=== PATIENT | female | born 1955 | race African-American/Black ===

== ENCOUNTER 2021-03-30 14:57 | Emergency (ER) | payer MEDICARE, OTHER ==
[~2021-03-30] VITALS: Ht 172.7 cm; Wt 450.0 kg
[2021-03-30] MEDS ORDERED: BACITRACIN 15GM TUBE TOP ONE (16:00)
[2021-03-30] MEDS ORDERED: BO1 TP (16:30)
[2021-03-30] MEDS ORDERED: NAPR-679 MT (16:33)
[2021-03-30 17:10] VITALS: BP 131/74
== END 2021-03-30 17:12 | disposition home or self-care (01) ==
LOC: ER 14:57
DX: L03.316 Cellulitis of umbilicus (principal); M79.3 Panniculitis, unspecified; E66.01 Morbid (severe) obesity due to excess calories; Z68.45 Body mass index [BMI] 70 or greater, adult; R03.0 Elevated blood-pressure reading, without diagnosis of hypertension
CPT/HCPCS: 99282

== ENCOUNTER 2021-05-25 13:55 | Emergency (ER) | payer BC, MEDICAID ==
[~2021-05-25] VITALS: Ht 167.6 cm; Wt 150.0 kg
[~2021-05-25 13:55] MED LIST: BO1 TP; NAPR-679 MT
[2021-05-25 14:10] VITALS: BP 161/82
[2021-05-25 19:15] LABS: BASOPHILS % 0.8 % (0.0-2.0); HEMATOCRIT. 34.2 % (36.0-48.0); HEMOGLOBIN. 11.4 g/dL (12.0-16.0); LYMPHOCYTES % 50.5 % (20.0-50.0); MEAN CORPUSCULAR HEMOGLOBIN 27.2 pg (28.0-32.0); MEAN CORPUSCULAR VOLUME 81.3 fL (81.0-99.0); MEAN PLATELET VOLUME 7.9 fl (7.4-10.4); MONOCYTES % 8.3 % (2.0-8.0); NEUTROPHILS % 35.4 % (40.0-76.0); PLATELET 289 x1000/uL (130-400); RED BLOOD CELL COUNT 4.21 mill/uL (4.2-5.4); RED CELL DISTRIBUTION WIDTH 14.9 % (11.6-14.6)
[2021-05-25 19:20] LABS: CHLORIDE 106 mEq/L (98-107)
== END 2021-05-25 21:31 | disposition home or self-care (01) ==
LOC: ER 13:55
DX: R60.0 Localized edema (principal); M79.672 Pain in left foot; M79.671 Pain in right foot; R26.2 Difficulty in walking, not elsewhere classified; M25.562 Pain in left knee; M25.561 Pain in right knee; R03.0 Elevated blood-pressure reading, without diagnosis of hypertension; I45.10 Unspecified right bundle-branch block; K43.9 Ventral hernia without obstruction or gangrene; E11.9 Type 2 diabetes mellitus without complications; J45.909 Unspecified asthma, uncomplicated; E66.9 Obesity, unspecified; Z68.43 Body mass index [BMI] 50.0-59.9, adult
CPT/HCPCS: 36415; 71045; 80053; 83880; 84484; 85025; 93005; 93970; 99285

== ENCOUNTER 2021-06-26 23:02 | Inpatient (IN) | payer BC, MEDICAID ==
[~2021-06-26] VITALS: Ht 172.7 cm; Wt 173.3 kg
[2021-06-26] MEDS ORDERED: KETOROLAC 30MG/ML VIAL IV ONE (23:30)
[2021-06-26] MEDS ORDERED: FUROSEMIDE 40MG/4ML VIAL IV ONE (23:30)
[2021-06-27 00:02] LABS: BASOPHILS % 0.9 % (0.0-2.0); EOSINOPHILS % 5.9 % (0.0-5.0); HEMATOCRIT. 29.8 % (36.0-48.0); HEMOGLOBIN. 10.3 g/dL (12.0-16.0); MEAN CORPUSCULAR HEMOGLOBIN 27.9 pg (28.0-32.0); MEAN CORPUSCULAR VOLUME 80.9 fL (81.0-99.0); MEAN PLATELET VOLUME 7.5 fl (7.4-10.4); MONOCYTES % 10.3 % (2.0-8.0); NEUTROPHILS % 33.9 % (40.0-76.0); PLATELET 275 x1000/uL (130-400); RED BLOOD CELL COUNT 3.68 mill/uL (4.2-5.4); RED CELL DISTRIBUTION WIDTH 15.4 % (11.6-14.6)
[2021-06-27 00:07] LABS: CHLORIDE 106 mEq/L (98-107)
[2021-06-27 03:03] VITALS: BP 140/75
[2021-06-27] MEDS ORDERED: *PATIENT'S OWN MEDICATION STORAGE XX SCH (05:45)
[2021-06-27] MEDS ORDERED: IPRATROPIUM/ALBUTEROL 0.5-3(2.5)MG/3ML NEB HHN PRN (06:15)
[2021-06-27] MEDS: HYDROCODONE/ACETAMINOPHEN 5/325MG TABLET PO PRN ×2 (06:37→12:47)
[2021-06-27] MEDS: FUROSEMIDE 40MG/4ML VIAL IVP SCH ×2 (06:43→18:39)
[2021-06-27] MEDS ORDERED: PNEUMOCOCCAL 23-VAL P-SAC VAC 0.5 ML IM ONE (08:00)
[2021-06-27 08:05] VITALS: BP 131/65
[2021-06-27] MEDS: ENOXAPARIN 40MG/0.4ML SYR SUBCUT SCH ×2 (08:56→21:18)
[2021-06-27] MEDS ORDERED: ENOXAPARIN 40MG/0.4ML SYR SUBCUT SCH (09:00)
[2021-06-27] MEDS ORDERED: LISINOPRIL 20MG TABLET PO SCH (09:00)
[2021-06-27] MEDS ORDERED: POTASSIUM CHLORIDE 20MEQ TABLET SR PO SCH (11:15)
[2021-06-27 11:57] VITALS: BP 132/76
[2021-06-27] MEDS: CYCLOBENZAPRINE 10MG TABLET PO SCH ×2 (13:58→21:18)
[2021-06-27] MEDS ORDERED: NALOXONE HCL 0.4MG/ML VIAL IV PRN (14:30)
[2021-06-27] MEDS: POTASSIUM CHLORIDE 20MEQ TABLET SR PO SCH (14:47)
[2021-06-27] MEDS: MAGNESIUM GLUCONATE 500MG TABLET PO SCH (14:47)
[2021-06-27 16:29] VITALS: BP 118/63
[2021-06-27 20:00] VITALS: BP 116/54
[2021-06-27] MEDS: DILTIAZEM HCL 60MG TABLET PO SCH (21:18)
[2021-06-28] VITALS: BP 99/53
[2021-06-28 04:00] VITALS: BP 113/70
[2021-06-28] MEDS: HYDROCODONE/ACETAMINOPHEN 5/325MG TABLET PO PRN (04:05)
[2021-06-28 06:48] LABS: CHLORIDE 106 mEq/L (98-107)
[2021-06-28] MEDS: FUROSEMIDE 40MG/4ML VIAL IVP SCH ×2 (07:13→18:08)
[2021-06-28] MEDS: CYCLOBENZAPRINE 10MG TABLET PO SCH ×3 (07:13→21:20)
[2021-06-28] MEDS: DILTIAZEM HCL 60MG TABLET PO SCH ×3 (07:13→21:20)
[2021-06-28 08:00] VITALS: BP 129/78
[2021-06-28] MEDS: MAGNESIUM GLUCONATE 500MG TABLET PO SCH (10:51)
[2021-06-28] MEDS: POTASSIUM CHLORIDE 20MEQ TABLET SR PO SCH (10:51)
[2021-06-28] MEDS: ENOXAPARIN 40MG/0.4ML SYR SUBCUT SCH ×2 (10:52→21:20)
[2021-06-28] MEDS ORDERED: POTASSIUM CHLORIDE 20MEQ TABLET SR PO SCH (11:00)
[2021-06-28 12:00] VITALS: BP 116/65
[2021-06-28 16:00] VITALS: BP 114/89
[2021-06-28 20:00] VITALS: BP 127/40
[2021-06-29] VITALS (7 sets, daily range): BP systolic 96–130; BP diastolic 46–78
[2021-06-29] MEDS: CYCLOBENZAPRINE 10MG TABLET PO SCH ×2 (06:32→13:33)
[2021-06-29] MEDS: FUROSEMIDE 40MG/4ML VIAL IVP SCH (06:32)
[2021-06-29] MEDS: DILTIAZEM HCL 60MG TABLET PO SCH (06:33)
[2021-06-29] MEDS: POTASSIUM CHLORIDE 20MEQ TABLET SR PO SCH (09:28)
[2021-06-29] MEDS: MAGNESIUM GLUCONATE 500MG TABLET PO SCH (09:28)
[2021-06-29] MEDS: ENOXAPARIN 40MG/0.4ML SYR SUBCUT SCH (09:29)
[2021-06-29] MEDS ORDERED: FURO-151 MT (11:45)
[2021-06-29] MEDS ORDERED: POTA20TA82 MT (11:45)
[2021-06-29] MEDS ORDERED: DILTIAZEM HCL 300MG CAPSULE SR 24HR PO SCH (12:00)
== END 2021-06-29 16:50 | disposition home health service (06) | DRG 292 ==
LOC: ER 23:02 → 6WST 06-27 02:24 → ENRESERV 06-27 03:04 → CANBEDREQ 06-27 18:08
PROVIDERS: ADMIT Internal Medicine; ATTEND Internal Medicine
DX: I11.0 Hypertensive heart disease with heart failure (principal); Z68.43 Body mass index [BMI] 50.0-59.9, adult; K42.9 Umbilical hernia without obstruction or gangrene; I50.33 Acute on chronic diastolic (congestive) heart failure; E66.01 Morbid (severe) obesity due to excess calories; M19.90 Unspecified osteoarthritis, unspecified site; I89.0 Lymphedema, not elsewhere classified; D64.9 Anemia, unspecified; J45.909 Unspecified asthma, uncomplicated; E87.6 Hypokalemia; E11.9 Type 2 diabetes mellitus without complications; I27.20 Pulmonary hypertension, unspecified; Z79.899 Other long term (current) drug therapy; Z82.49 Family history of ischemic heart disease and other diseases of the circulatory system; Z83.3 Family history of diabetes mellitus
CPT/HCPCS: 36415; 71045; 80048; 80053; 83880; 84484; 85025; 90732; 93005; 93306; 93970; 97162; 99285; J1650; J1885; J1940